=== PATIENT | female | born 1975 | race Hispanic/Latino ===

== ENCOUNTER → 2019-09-02 | Day surgery (SDC) | payer BC, OTHER ==
[~2019-09-02] MED LIST: ACETAMINOPHEN 1000 MG/100 ML 100 ML IV ONE; ACETAMINOPHEN 1000 MG/100 ML IV ONE; ADVIL200 MG PO; BUPIVACAINE HCL 0.5% INJ 30 ML VIAL INJ ONE; CEFAZOLIN SOD 1 GM/NS 50ML 100 ML IV ONE; DEXAMETHASONE SOD PHOS INJ 4 MG/ML VIAL ONE; FENTANYL CITRATE/PF 100MCG/2 ML INJ ONE; GLYCOPYRROLATE 0.2 MG/ML VIAL ONE; KETOROLAC TROMETHAMINE 30 MG/ML VIAL ONE; LIDOCAINE HCL 2% LOCAL INJ 5 ML SDV VIAL INJ ONE; MIDAZOLAM HCL 2 MG/2 ML VIAL ONE; NEOMYCIN/POLYMYX/BACITR OINT 0.9 GM PKT ONE; ONDANSETRON HCL INJ 2MG/ML 2ML 2 MG/ML VIAL ONE; PROPOFOL IV EMULSION 10 MG/ML 20 ML VIAL ONE; SEVOFLURANE INHAL SOLN 250 ML PEN BTL ONE
--- OUTSIDE RECORDS SUMMARY | 2019-09-02 07:07 | XMS REPORT | Clinical Summary ---
Author Author [facility] Organization [facility] Address Unknown Phone Unavailable Care Team Providers Care Assistant Producer Name Role Phone Ivania Centeno PCP Allergies No Known Allergies Medications End Date Status Medication Sig Dispensed Refills Start Date Active ibuprofen (ADVIL,MOTRIN) nightly. 0 10/03 800 MG tablet 9 Active Problems No known active problems Encounters Care Team Description Date Type Specialty Ivania Centeno PA Breast cancer screening (Primary Dx); Well woman exam with routine gynecological exam; Screening for colon cancer 11/25/2018 Office Visit Family Medicine Ivania Centeno PA 11/25/2018 Orders Only Family Medicine after 09/01/2018 Family History Medical History Relation Name Comments Diabetes Father Colon cancer Mother Relation Name Status Comments Father Mother Social History Date Tobacco Use Types Packs/Day Years Used Former Smoker Smokeless Tobacco: Never Used Drinks/Week oz/Week Comments Alcohol Use Never Alcohol Habits Answer Date Recorded How often do you have a drink containing alcohol? Never 11/25/2018 How many drinks containing alcohol do you have on No t asked a typical day when you are drinking? How often do you have six or more drinks on one Not asked occasion? Sex Assigned at Date Recorded Not on file Industry Job Start Date Occupation Not on file Not on file Not on file Travel End Travel History Travel Start No recent travel history available. Last Filed Vital Signs Reading Time Taken Comments Vital Sign 103/68 11/25/2018 1:25 PM CDT Blood Pressure 80 11/25/2018 1:25 PM CDT Pulse 36.7 C (98 F) 11/25/2018 1:25 PM CDT Temperature - - Respiratory Rate 98% 11/25/2018 1:25 PM CDT Oxygen Saturation - - Inhaled Oxygen Concentration 122 kg (270 lb) 11/25/2018 1:25 PM CDT Weight 160 cm (5' 3") 11/25/2018 1:25 PM CDT Height 47.83 11/25/2018 1:25 PM CDT Body Mass Index Plan of Treatment Health Maintenance Due Date Last Done Comments CERVICAL CANCER SCREENING 1996 INFLUENZA VACCINE 11/15/2019 Procedures Comments Procedure Name Priority Date/Time Associated Diag nosis [facility] FPGS AND HPV Routine 11/25/2018 MRNA E6/E7 REFLEX 2:12 AM CDT GENOTYPES PAP W/AGE BASED SCREENING Routine 11/25/2018 PROTOCOLS 2:12 AM CDT after 09/01/2018 Results * [facility] FPGS AND HPV mRNA E6/E7 REFLEX GENOTYPES (11/25/2018 2:12 AM CDT) Clinical None given [facility] information [facility] ING II Date of last NONE GIVEN [facility] menstrual [facility] period ING II Prev. pap: NONE GIVEN [facility] ING II Prev. bx: NONE GIVEN [facility] ING II Source other [facility] ING II Statement of Comment: [facility] adequacy Satisfactory for evaluation. [facility] Endocervical/transformation ING II zone component absent. Age and/or menstrual status not provided Interpretation/ Comment: Negative for [facility] result: intraepithelial lesion or [facility] malignancy. ING II Comment Comment: [facility] This Pap test has been [facility] evaluated with computer ING II assisted technology. Cytotechnologis Comment: [facility] t C, CT(ASCP) [facility] CT screening location: [place] [address] Comment Comment: [facility] EXPLANATORY NOTE: [facility] The Pap is a screening test ING II for cervical cancer. It is not a diagnostic test and is subject to false negative and false positive results. It is most reliable when a satisfactory sample, regularly obtained, is submitted with relevant clinical findings and history, and when the Pap result is evaluated along with historic and current clinical information. HPV mRNA e6/e7 Not Detected NOT DETECTED [facility] Comment: [facility] This test was performed using ING II the APTIMA HPV Assay ([employer] This assay detects E6/E7 viral messenger RNA (mRNA) from 14 high-risk HPV types (16,18,31,33,35,39,45,51,52,56 ,58,59,66,68). The analytical performance characteristics of this assay, when used to test SurePath specimens, have been determined by [employer] Specimen Resulting Agency Comment Performing Organization Information: Site ID: [id number] Name: [facility] Address: [address] [place] [id number] Director: Dr. Leandro Faust Performing Organization Address [facility] [place] Ph one Number RAUL SARMIENTO[address] [address] II * PAP W/AGE BASED SCREENING PROTOCOLS (11/25/2018 2:12 AM CDT) Comment Comment: [facility] This order for age-based [facility] cervical cancer and STI ING II screening follows ACOG guidelines(PB 168, 140, IJI465). See individual assays for performing site location. Specimen Resulting Agency Comment Performing Organization Information: Site ID: [id number] [facility]: [facility] Address: [address] [place] [id number] Director: Dr. Leandro Faust Performing Organization Address [facility] one Number [employer] [employer] ([employer]) [address] [address] II after 09/01/2018 Insurance Type Payer Benefit Subscriber ID Effective Phone Address Plan / Dates Group PPO BCBS BCBS xxxxxxxxxxxx 2018-P CHOICE resent PPO/MARIEL ROSENBERG PPO (Home) [place] [address] Advance Directives For more information, please contact: [phone] Patient [employer] Diver Explanation Type Date Recorded Advance Directives, Living Will and Medical Power of Manager Utilization Management
[2019-09-02 12:00] VITALS: BP 142/73
--- NOTE | 2019-09-02 13:35 | Operative Report ---
DATE OF PROCEDURE: 09/02/2019 SURGEON: Eden Soliman DPM PREOPERATIVE DIAGNOSIS: Chronic plantar fasciitis with bone spur, left foot. POSTOPERATIVE DIAGNOSIS: Chronic plantar fasciitis with bone spur, left foot. PROCEDURE: Endoscopic plantar fasciotomy with excision of bone spur, left foot. ANESTHESIA: General anesthetic. HEMOSTASIS: Pneumatic ankle tourniquet 250 mmHg. ESTIMATED BLOOD LOSS: Less than 10 mL. MATERIALS: AlloWrap 2 x 4, lot #[id number], October 2020 is the expiration date. COMPLICATIONS: None. CONDITION: Stable. PROCEDURE IN DETAIL: Under mild sedation, the patient was brought to the operative room, placed on the operating table in supine position. Following IV sedation, anesthesia was obtained with a general anesthetic. At this point, the left foot scrubbed, prepped, and draped in usual aseptic manner. The leg was then lowered to the table. After the pneumatic ankle tourniquet was inflated to 250 mmHg, attention was then directed to the medial aspect of the left foot where a linear incision was made overlying the incision of the plantar fascia. The plantar fascia was then isolated taking care to retract or cauterize neurovascular structures as necessary. Once it was isolated, trocar and cannula were then inserted. A lateral incision was made for the trocar to come out laterally. The trocar was removed. The camera was inserted. Medial, central and lateral bands were visualized. Utilizing a fascia blade, the medial and central bands were transected through and through leaving the lateral band intact. All instruments were removed. Attention was directed to the medial aspect of the left foot where utilizing the same incision with blunt dissection, the bone spur was isolated with the use of intraoperative fluoroscopy. The area was then made smooth utilizing a power rasp and a hand rasp. The area was then flushed with copious amount of normal sterile saline solution. At this point, the human allograft was then inserted into the area to promote healing to prevent adhesions. The area was then closed closing with 4-0 nylon. Clean dressing was applied consisting of Adaptic, Coban, 4x4s, Kerlix, and an Maulik bandage. Tourniquet was deflated. There was noted to be hyperemic response to all the digits. The patient tolerated the procedure and anesthesia well without complications, was transferred to recovery room with vital signs stable and vascular status intact to both feet. The patient will be discharged home when she meets criteria. She was given instructions to be strictly nonweightbearing, to ice and elevate the foot while at rest. Follow up with me in the office and to call the office if any questions, concerns, or new problems arise. MADISON Saenz/KARINE /[id number] MTDD
== END | disposition home or self-care (01) ==
LOC: OR 07:05
PROVIDERS: ATTEND Podiatrist Foot & Ankle Surgery
DX: M72.2 Plantar fascial fibromatosis (principal); M77.52 Other enthesopathy of left foot and ankle; E66.01 Morbid (severe) obesity due to excess calories; Z01.812 Encounter for preprocedural laboratory examination; Z11.59 Encounter for screening for other viral diseases
CPT/HCPCS: 28104; 29893; 81025; 87635; J0131; J0690; J1100; J1885; J2001; J2250; J2405; J2704; J3010; Q4150; 76000

== ENCOUNTER 2019-10-10 09:34 | Outpatient (RCR) | payer BC ==
[~2019-10-10 09:34] MED LIST changes: -ACETAMINOPHEN 1000 MG/100 ML 100 ML IV ONE; -ACETAMINOPHEN 1000 MG/100 ML IV ONE; -BUPIVACAINE HCL 0.5% INJ 30 ML VIAL INJ ONE; -CEFAZOLIN SOD 1 GM/NS 50ML 100 ML IV ONE; -DEXAMETHASONE SOD PHOS INJ 4 MG/ML VIAL ONE; -FENTANYL CITRATE/PF 100MCG/2 ML INJ ONE; -GLYCOPYRROLATE 0.2 MG/ML VIAL ONE; -KETOROLAC TROMETHAMINE 30 MG/ML VIAL ONE; -LIDOCAINE HCL 2% LOCAL INJ 5 ML SDV VIAL INJ ONE; -MIDAZOLAM HCL 2 MG/2 ML VIAL ONE; -NEOMYCIN/POLYMYX/BACITR OINT 0.9 GM PKT ONE; -ONDANSETRON HCL INJ 2MG/ML 2ML 2 MG/ML VIAL ONE; -PROPOFOL IV EMULSION 10 MG/ML 20 ML VIAL ONE; -SEVOFLURANE INHAL SOLN 250 ML PEN BTL ONE
[2019-10-15] MEDS ORDERED: ULTRAM 50MG50 MG PO (10:09)
== END 2019-10-14 ==
LOC: PT 09:34
PROVIDERS: ATTEND Podiatrist Foot & Ankle Surgery
DX: M72.2 Plantar fascial fibromatosis (principal)

== ENCOUNTER → 2019-10-21 | Day surgery (SDC) | payer BC, OTHER ==
[~2019-10-21] MED LIST changes: +BUPIVACAINE HCL 0.5% INJ 30 ML VIAL INJ ONE; +CEFAZOLIN SOD 1 GM/NS 50ML 100 ML IV ONE; +DEXAMETHASONE SOD PHOS INJ 4 MG/ML VIAL ONE; +ETOMIDATE 2 MG/ML 10 ML INJ IV ONE; +FENTANYL CITRATE/PF 100MCG/2 ML INJ ONE; +KETOROLAC TROMETHAMINE 30 MG/ML VIAL ONE; +LIDOCAINE HCL 2% LOCAL INJ 5 ML SDV VIAL INJ ONE; +NEOSTIGMINE 1 MG/ML 10ML VIAL ONE; +ONDANSETRON HCL INJ 2MG/ML 2ML 2 MG/ML VIAL ONE; +PROPOFOL IV EMULSION 10 MG/ML 20 ML VIAL ONE; +SEVOFLURANE INHAL SOLN 250 ML PEN BTL ONE; +ULTRAM 50MG50 MG PO
[2019-10-21 10:05] VITALS: BP 124/79
--- NOTE | 2019-10-21 11:26 | Operative Report ---
DATE OF PROCEDURE: 10/21/2019 SURGEON: Eden Soliman DPM QA AUTOMATION ENGINEER: None. PREOPERATIVE DIAGNOSIS: Chronic plantar fasciitis with bone spur, right foot. POSTOPERATIVE DIAGNOSIS: Chronic plantar fasciitis with bone spur, right foot. PROCEDURES: EPF with removal of bone spur, right foot. PATHOLOGY: None. ANESTHESIA: General anesthetic with a local block of 10 mL. HEMOSTASIS: A pneumatic ankle tourniquet. ESTIMATED BLOOD LOSS: Less than 10 mL. MATERIALS: A 2 x 2 human allograft from [employer] a [employer]. COMPLICATIONS: None. CONDITION: Stable. PROCEDURE IN DETAIL: Under mild sedation, the patient was brought to the operating room, placed on the operating table in supine position. Following IV sedation, anesthesia was obtained with a general anesthetic. At this point, the right foot was scrubbed, prepped, and draped in the usual aseptic manner. The leg was then lowered to the table after the pneumatic ankle tourniquet was inflated to 250 mmHg. Attention was then directed to the medial aspect of the right foot, where a linear incision was made overlying the incision of the plantar fascia. The incision was deepened via sharp and blunt dissection with a fascia separator down to the level of the fascia. The trocar and cannula were then inserted. A lateral portal was then made. The trocar was then removed. The camera was inserted. Medial, central, and lateral bands were visualized. Utilizing a fascia blade, the medial and central bands were transected through and through, leaving the lateral band intact. All instruments were removed. The area was then flushed with copious amount of normal sterile saline solution. Under the use of intraoperative fluoroscopy, the wounds were was isolated with sharp and blunt dissection with a #15 blade and a separator. Once it was isolated, a power rasp was then used to remove the bone spur under the use of intraoperative fluoroscopy. The area was then flushed with copious amount of normal sterile saline solution. After all the nonviable tissue and flushing, the human allograft was then inserted and noted to promote adhesion to promote healing to prevent adhesions. The area was then closed, closing with 4-0 nylon. Clean dressing was applied consisting of Adaptic ointment, 4x4s, Kerlix, and an Maulik bandage. The tourniquet was deflated. There was noted to be hyperemic response to all the digits. The patient tolerated the procedure and anesthesia well without complication, and was transferred to recovery room with vital signs stable and vascular status intact to both feet. The patient will be discharged home when she meets criteria. She was given instructions to be nonweightbearing to ice and elevate the foot while at rest. Follow up with me in the office and to call the office if any questions, concerns, or new problems arise. MADISON Saenz/KARINE /[id number]
== END | disposition home or self-care (01) ==
LOC: OR 06:39
PROVIDERS: ATTEND Podiatrist Foot & Ankle Surgery
DX: M72.2 Plantar fascial fibromatosis (principal); M77.31 Calcaneal spur, right foot; E66.01 Morbid (severe) obesity due to excess calories; Z01.812 Encounter for preprocedural laboratory examination; Z11.59 Encounter for screening for other viral diseases
CPT/HCPCS: 28104; 29893; 81025; J0690; J1100; J1885; J2001; J2405; J2704; J2710; J3010; Q4150; U0002; 76000